=== PATIENT | male | born 1950 | race Caucasian/White ===

== ENCOUNTER 2016-10-01 23:45 | Inpatient (IN) | payer MEDICARE, MEDICAID ==
[~2016-10-01] VITALS: Ht 175.3 cm; Wt 57.7 kg
[2016-10-02] MEDS ORDERED: BUDE10.22 INH (00:01)
[2016-10-02] MEDS ORDERED: ALBU90AE INH (00:01)
[2016-10-02] MEDS ORDERED: AMLO10TA2 PO (00:01)
[2016-10-02 00:13] LABS: HEMOGLOBIN 12.9 g/dL (13.7-18.0)
[2016-10-02 00:22] LABS: BLOOD UREA NITROGEN 13 mg/dL (7-18)
[2016-10-02 00:27] LABS: IS PT STATUS REG ER OR PRE ER? YES
[2016-10-02 00:39] LABS: DIFF TOTAL CELLS COUNTED 100 CELL DIFF
[2016-10-02 00:43] LABS: ANISOCYTOSIS 1+; POLYCHROMASIA 1+
[2016-10-02 00:45] LABS: LARGE PLATELETS 1+; VERIFY COUNTS? YES
[2016-10-02] MEDS ORDERED: SODIUM CHLORIDE 0.9% 1,000 ML IV ONE (01:10)
[2016-10-02] MEDS ORDERED: ONDANSETRON 2MG/ML, 2ML ONE (01:21)
[2016-10-02] MEDS ORDERED: MORPHINE SULFATE 4 MG/ML, 1ML ONE (01:21)
[2016-10-02] MEDS ORDERED: CEFTRIAXONE PMX 1GM/50ML 50 ML ONE (01:21)
[2016-10-02] MEDS ORDERED: CEFTRIAXONE PMX 1GM/50ML 50 ML IVPB ONE (01:30)
[2016-10-02] MEDS ORDERED: SODIUM CHLORIDE 0.9% 1,000ML IVBOLUS ONE (01:30)
[2016-10-02] MEDS ORDERED: AZITHROMYCIN 500 MG in SODIUM CHLORIDE 0.9% 250 ML IV ONE (01:30)
[2016-10-02] MEDS ORDERED: ONDANSETRON 2MG/ML, 2ML IVPush PRN (01:30)
[2016-10-02] MEDS ORDERED: MORPHINE SULFATE 4 MG/ML, 1ML IVPush PRN (01:30)
[2016-10-02] MEDS ORDERED: LABETALOL 5MG/ML, 20ML IV PRN ×2 (02:30→15:17)
[2016-10-02] MEDS ORDERED: ONDANSETRON ODT 4 MG PO PRN (02:30)
[2016-10-02] MEDS ORDERED: DOCUSATE 100 MG CAPSULE PO PRN (02:30)
[2016-10-02] MEDS ORDERED: BISACODYL 10 MG SUPP PR PRN (02:30)
[2016-10-02] MEDS ORDERED: POLYETHYLENE GLYCOL 17 GM PACKET PO PRN (02:30)
[2016-10-02] MEDS ORDERED: ACETAMINOPHEN 325 MG TABLET PO PRN (02:30)
[2016-10-02] MEDS ORDERED: TRAZODONE 50MG TABLET PO PRN (02:30)
[2016-10-02 02:38] VITALS: BP 121/93
[2016-10-02] MEDS ORDERED: LORA2TAB PO (02:58)
[2016-10-02] MEDS ORDERED: CITA20TA9 PO (02:58)
[2016-10-02] MEDS ORDERED: TIOT18CA INH (02:58)
[2016-10-02] MEDS: NS + 20MEQ KCL 1,000 ML IV SCH ×4 (03:41→22:05)
[2016-10-02] MEDS: methylPREDNISolone SOD SUCC 125 MG/2 ML IVPush SCH ×4 (03:41→21:30)
[2016-10-02] MEDS: CEFTRIAXONE PMX 2GM/50ML 50 ML IV SCH (03:41)
[2016-10-02] MEDS: ENOXAPARIN 40 MG/0.4 ML SQ SCH (04:00)
[2016-10-02] MEDS: HYDROcodone/APAP 5/325 TABLET PO PRN ×4 (04:00→20:17)
[2016-10-02] MEDS: ALBUTEROL/IPRATROPIUM 2.5MG/0.5MG, 3 ML NPPB SCH ×4 (06:30→21:20)
[2016-10-02 08:40] VITALS: BP 110/69
[2016-10-02] MEDS: CITALOPRAM 20 MG TABLET PO SCH (09:32)
[2016-10-02] MEDS: AMLODIPINE 5 MG TABLET PO SCH (09:32)
[2016-10-02] MEDS: AZITHROMYCIN 500 MG TABLET PO SCH (09:32)
[2016-10-02] MEDS ORDERED: POTASSIUM CHLORIDE 20 MEQ TAB.ER.PRT PO ONE (10:30)
[2016-10-02] MEDS: GUAIFENESIN 200 MG TABLET PO SCH ×3 (11:00→20:18)
[2016-10-02 13:20] VITALS: BP 117/72
[2016-10-02 19:18] VITALS: BP 129/67
[2016-10-02] MEDS ORDERED: LORazepam 2 MG/ML, 1ML IVPush ONE (21:30)
[2016-10-03] MEDS: HYDROcodone/APAP 5/325 TABLET PO PRN ×4 (00:39→20:12)
[2016-10-03] MEDS: ALBUTEROL/IPRATROPIUM 2.5MG/0.5MG, 3 ML NPPB SCH ×5 (01:03→20:00)
[2016-10-03 01:10] VITALS: BP 114/64
[2016-10-03] MEDS ORDERED: NS + 20MEQ KCL 1,000 ML IV SCH (02:30)
[2016-10-03] MEDS: methylPREDNISolone SOD SUCC 125 MG/2 ML IVPush SCH ×2 (03:56→09:05)
[2016-10-03] MEDS: CEFTRIAXONE PMX 2GM/50ML 50 ML IV SCH (03:56)
[2016-10-03 05:49] LABS: HEMOGLOBIN 11.1 g/dL (13.7-18.0)
[2016-10-03 05:53] LABS: BLOOD UREA NITROGEN 13 mg/dL (7-18)
[2016-10-03] MEDS: GUAIFENESIN 200 MG TABLET PO SCH ×4 (05:55→20:33)
[2016-10-03] MEDS: ENOXAPARIN 40 MG/0.4 ML SQ SCH (05:56)
[2016-10-03 06:43] LABS: DIFF TOTAL CELLS COUNTED 100 CELL DIFF
[2016-10-03 06:50] LABS: VERIFY COUNTS? YES
[2016-10-03 06:51] LABS: ANISOCYTOSIS 1+
[2016-10-03 06:52] LABS: LARGE PLATELETS 1+
[2016-10-03 07:00] VITALS: BP 126/68
[2016-10-03] MEDS: AZITHROMYCIN 500 MG TABLET PO SCH (09:01)
[2016-10-03] MEDS: AMLODIPINE 5 MG TABLET PO SCH (09:01)
[2016-10-03] MEDS: CITALOPRAM 20 MG TABLET PO SCH (09:01)
[2016-10-03] MEDS: NS + 20MEQ KCL 1,000 ML IV SCH (09:07)
[2016-10-03 14:10] VITALS: BP 119/69
[2016-10-03] MEDS ORDERED: LORazepam 1MG TABLET PO PRN (15:00)
[2016-10-03 19:37] VITALS: BP 127/63
[2016-10-03] MEDS ORDERED: LORazepam 1MG TABLET PO ONE (20:30)
[2016-10-04] MEDS: ALBUTEROL/IPRATROPIUM 2.5MG/0.5MG, 3 ML NPPB SCH ×2 (01:19→07:40)
[2016-10-04 01:37] VITALS: BP 108/61
[2016-10-04] MEDS: CEFTRIAXONE PMX 2GM/50ML 50 ML IV SCH (03:56)
[2016-10-04 05:54] LABS: HEMOGLOBIN 10.9 g/dL (13.7-18.0)
[2016-10-04] MEDS: ENOXAPARIN 40 MG/0.4 ML SQ SCH (06:00)
[2016-10-04] MEDS: GUAIFENESIN 200 MG TABLET PO SCH (06:00)
[2016-10-04 06:13] LABS: BLOOD UREA NITROGEN 13 mg/dL (7-18)
[2016-10-04] MEDS: HYDROcodone/APAP 5/325 TABLET PO PRN (06:23)
[2016-10-04 07:00] VITALS: BP 118/67
[2016-10-04 07:19] LABS: DIFF TOTAL CELLS COUNTED 100 CELL DIFF
[2016-10-04 07:21] LABS: ANISOCYTOSIS 1+; LARGE PLATELETS 1+; VERIFY COUNTS? YES
[2016-10-04] MEDS ORDERED: GUAI200T3 PO (09:01)
[2016-10-04] MEDS ORDERED: PRED10TA PO (09:01)
[2016-10-04] MEDS ORDERED: CEFD300C2 PO (09:01)
[2016-10-04] MEDS ORDERED: HYDR-3240 PO (09:01)
[2016-10-04] MEDS: AZITHROMYCIN 500 MG TABLET PO SCH (09:38)
[2016-10-04] MEDS: CITALOPRAM 20 MG TABLET PO SCH (09:38)
[2016-10-04] MEDS: AMLODIPINE 5 MG TABLET PO SCH (09:38)
== END 2016-10-04 10:15 | disposition home or self-care (01) | DRG 190 ==
LOC: ED 23:59 → EDIP 10-02 01:10 → 4EST 10-02 02:09
PROVIDERS: ADMIT Internal Medicine; ATTEND Internal Medicine
DX: J44.0 Chronic obstructive pulmonary disease with (acute) lower respiratory infection (principal); J18.9 Pneumonia, unspecified organism; J44.1 Chronic obstructive pulmonary disease with (acute) exacerbation; I10 Essential (primary) hypertension; F17.200 Nicotine dependence, unspecified, uncomplicated; R09.02 Hypoxemia; G89.29 Other chronic pain; F41.9 Anxiety disorder, unspecified; F17.210 Nicotine dependence, cigarettes, uncomplicated; D72.828 Other elevated white blood cell count; E87.6 Hypokalemia; E88.09 Other disorders of plasma-protein metabolism, not elsewhere classified; Z99.81 Dependence on supplemental oxygen; Z82.5 Family history of asthma and other chronic lower respiratory diseases
CPT/HCPCS: 36415; 71010; 80048; 82040; 83605; 84145; 84484; 85025; 87040; 93005; 94640; 96365; 96375; J0696; J1650; J2405; J3480; J7620; J2060; J2930; J7030; J7512

== ENCOUNTER 2017-01-31 13:32 | Emergency (ER) | payer MEDICARE, MEDICAID ==
[~2017-01-31 13:32] MED LIST: ALBU90AE INH; AMLO10TA2 PO; BUDE10.22 INH; CEFD300C37 PO; CITA20TA9 PO; GUAI200T3 PO; HYDR-3240 PO; LORA2TAB PO; PRED10TA PO; TIOT18CA INH
== END 2017-01-31 13:55 | disposition left against medical advice (07) ==
LOC: ED 13:49
DX: Z53.21 Procedure and treatment not carried out due to patient leaving prior to being seen by health care provider (principal)